=== PATIENT | female | born 2000 | race Caucasian/White ===

== ENCOUNTER 2023-09-30 15:49 | Emergency (ER) | payer MEDICAID, SELFPAY ==
[2023-09-30 16:19] VITALS: BP 153/87; PULSE 103; RESP 16; TEMP 36.6; O2SAT 96; BMI 50.5
--- NOTE | 2023-09-30 16:19 | ED_ITS ---
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 ? Patient reports for the last 3 days or so she has a lump ?near my clitoris. ? She states the area is painful Earlier today it ?popped and was bleeding. ? Denies any fevers or chills No other complaints or concerns at this time Related Data Previous Rx's Medication Instructions Recorded cephalexin 500 mg capsule 500 mg PO QID #28 caps 09/30/23 Allergies Allergy/AdvReac Type Severity Reaction Status Date / Time No Known Allergies Allergy Verified 09/30/23 16:19 Review of Systems Constitutional: Constitutional: Denies chills and Denies fever(s) Cardiovascular: Cardiovascular: Denies chest pain and Denies dyspnea Respiratory: Respiratory: Denies cough and Denies dyspnea Genitourinary: Genitourinary: Denies dysuria and Reports pelvic pain Comments: Reports lump near her clitoris Physical Exam Vital Signs: Vital Signs: Last Vital Signs Temp 97.8 F 09/30/23 16:19 Pulse 103 H 09/30/23 16:19 Resp 16 09/30/23 16:19 BP 153/87 H 09/30/23 16:19 Pulse Ox 96 09/30/23 16:19 O2 Del Method Room Air 09/30/23 16:19 BMI result Body Mass Index 50.5 Const: General: healthy appearing, comfortable, no acute distress, alert and awake Nutritional Appearance: well nourished Orientation/consciousness: patient oriented x3 HEENT: Head: Yes normocephalic and Yes atraumatic Eyes: Eyelids: Yes eyelids normal Conjunctivae: conjunctivae normal Sclerae: sclerae normal Corneas: corneas normal Pupils: Equal, round and reactive pupils present EOM: EOMs intact bilaterally Neck: Neck: Yes full ROM Resp: Effort & Inspection: normal respiratory effort, able to speak in complete sentences and not labored : Other: Patient has a small abscess that is open and draining just superior and right lateral side of the vaginal introitus. There is minimal surrounding erythema. This area is tender to palpation. Skin: General skin exam: elasticity normal Neuro: General: patient oriented x3 Cranial nerves: Yes Equal, round and reactive pupils present and Yes Bilaterally intact EOM present Cognition (Neuro): normal cognition Course Course Course Narrative: RME:?23 yo german speaking female here for evaluation of painful vaginal mass x3 days. Reports feeling a lump within the vaginal canal that she can now feel on the outside of her vagina. +bloody/mucousy vaginal discharge. denies other vaginal lesions, pruritis. never had symptoms before. LMP 1 mo ago. Not sexually active. Not on control. exam limited in triage. plan for UA, pelvic exam Full HPI, ROS and PE to be performed by the primary ED provider. Medical Decision Making Medical Decision Making [facility] Narrative: Patient appears to have a small abscess that is actively draining. I was able t o express about 60s of purulent drainage without any further incision. Patient was encouraged to use antibiotics for 1 week and continue with warm compresses and practice good hygiene to prevent a UTI. Will discharge her with cefuroxime Differential Diagnosis Differential Diagnoses: The differential diagnosis associated with the presen tation includes Cellulitis Abscess Sebaceous cyst Bartholin cyst [place]'s gland cyst Lab Data Labs: Lab Results 09/30/23 Range/Units 18:43 Urine Color Yellow Urine Appearance Clear Urine pH 5.5 (5.0-9.0) Ur Specific [place] 1.025 (1.005-1.025) Urine Protein Negative (Neg-Trace) mg/dL Urine Glucose (UA) Negative (Negative) mg/dL Urine Ketones Negative (Negative) mg/dL Urine Blood Negative (Negative) Urine Nitrite Negative (Negative) Ur Leukocyte Esterase Trace H (Negative) Urine RBC 0-2 (0-2) /HPF Urine WBC 6-10 H (0-5) /HPF Ur Squamous Epith Cells 6-10 (0-2) /HPF Urine Bacteria None Seen (None Seen) Hyaline Casts 0-2 (0-2) /LPF Urine Test NEGATIVE (NEGATIVE) Discharge Plan Discharge Clinical Impression: Abscess of groin, right Patient Disposition: Home, Self-Care Instructions: Abscess (ED) Additional Instructions: You had a small skin abscess. Use warm compresses every 4 hours for 10-15 minutes Take cephalexin 4 times daily for 7 days Try to keep the area very clean and dry to prevent UTI Follow-up with your primary doctor Prescriptions: New cephalexin 500 mg capsule 500 mg PO QID Qty: 28 0RF
[2023-09-30 18:51] LABS: Appearance Urine Clear; Color Urine Yellow; Glucose Urine UA Negative (Negative); Leukocyte Esterase Urine Trace (Negative); Nitrite Urine Negative (Negative); PH 5.5 (5.0-9.0); Specific Gravity - Urine 1.025 (1.005-1.025); UMIC TRIGGER UACC YES; Urine Blood Negative (Negative); Urine Ketones Negative (Negative); Urine Protein Negative (Neg-Trace)
[2023-09-30 18:52] LABS: UPreg QC Valid YES; Urine Pregnancy NEGATIVE (NEGATIVE)
[2023-09-30 18:53] LABS: Bacteria Urine None Seen (None Seen); Hyaline Casts Urine 0-2 /LPF (0-2); RBC Urine 0-2 /HPF (0-2); UACC Culture Trigger YES
--- OUTSIDE RECORDS SUMMARY | 2023-09-30 19:15 | XMS_ITS | Continuity of Care Document ---
Author Name Unknown Organization [facility] Address [address] [place] [address]- Care Team Providers Care Syrup Maker Cook Name Role Phone Not on Staff, PCP Primary Care Physician Unavail able Encounter [facility] Date(s): 11/13/21 - 01/07/[address] [address]- Attending Physician: Not on Staff, Attending MD Immunizations Given and Recorded Vaccine Date Status Refusal Reason influenza virus vaccine, inactivated 07/01/20 Medhat rded Human Papillomavirus Vaccine 07/01/20 Recorded tetanus/diphtheria/pertussis, acel(Tdap) 05/29/19 Recorded
--- OUTSIDE RECORDS SUMMARY | 2023-09-30 19:15 | XMS_ITS | Continuity of Care Document ---
Author Name Unknown Organization [facility] Address [address] [place] [address]- Care Team Providers Care Belly Packer Name Role Phone Not on Staff, PCP Primary Care Physician Unavail able Encounter [facility] Date(s): 12/08/21 - 01/07/[address] [address]- Attending Physician: Lloyd Brandon Admitting Physician: Lloyd Brandon Referring Physician: AdmtrLloyd Immunizations Given and Recorded Vaccine Date Status Refusal Reason influenza virus vaccine, inactivated 07/01/20 Medhat rded Human Papillomavirus Vaccine 07/01/20 Recorded tetanus/diphtheria/pertussis, acel(Tdap) 05/29/19 Recorded
--- OUTSIDE RECORDS SUMMARY | 2023-09-30 19:16 | XMS_ITS | Continuity of Care Document ---
Author Name Unknown Organization [facility] Address [address] [place] [address]- Care Team Providers Care Audience Coordinator Name Role Phone Not on Staff, PCP Primary Care Physician Unavail able Encounter [facility] Date(s): 10/03/21 - 11/29/[address] [address]- Attending Physician: Not on Staff, Attending MD Immunizations Given and Recorded Vaccine Date Status Refusal Reason influenza virus vaccine, inactivated 07/01/20 Medhat rded Human Papillomavirus Vaccine 07/01/20 Recorded tetanus/diphtheria/pertussis, acel(Tdap) 05/29/19 Recorded
--- OUTSIDE RECORDS SUMMARY | 2023-09-30 19:16 | XMS_ITS | Continuity of Care Document ---
Author Name Unknown Organization [facility] Address [address] [place] [address]- Care Team Providers Care Industrial Engineering Name Role Phone Not on Staff, PCP Primary Care Physician Unavail able Encounter [facility] Date(s): 12/03/22 - 12/04/[address] [address]- Discharge Disposition: A-D/C Walkout Attending Physician: Not on Staff, Attending MD Admitting Physician: Not on Staff, Admitting MD Referring Physician: Not on Staff, Referring MD Allergies, Adverse Reactions, Alerts No Known Allergies Immunizations Given and Recorded Vaccine Date Status Refusal Reason influenza virus vaccine, inactivated 07/01/20 Medhat rded Human Papillomavirus Vaccine 07/01/20 Recorded tetanus/diphtheria/pertussis, acel(Tdap) 05/29/19 Recorded Vital Signs Most recent to oldest [Reference Range]: 1 2 Oxygen Saturation [94-100 %] 100 % (12/03/22 9:54 PM) 98 % (12/03/22 9:50 PM) Pulse Rate [55-90 bpm] 113 bpm *H* (12/03/22 9:54 PM) 114 bpm *H* (12/03/22 9:50 PM) Blood Pressure [90-138/55-84 mm Hg] 126/ 93mm Hg (12/03/22 9:54 PM) Respiratory Rate [16-30 br/min] 18 br/mi n (12/03/22 9:54 PM) Temperature [96.8-100.4 DegF] 98.4 DegF (12/03/22 9:54 PM) Mode of Delivery (Oxygen) Room air (12/03/22 9:54 PM) Blood pressure sites Arm, left (12/03/22 9:54 PM) Temperature Route Oral (12/03/22 9:54 PM) Patient Care team information Care Team Personnel Name: Not on Staff, PCP Position: S Physician (General Medicine) Member Role: PCP
--- OUTSIDE RECORDS SUMMARY | 2023-09-30 19:16 | XMS_ITS | Continuity of Care Document ---
Author Name Unknown Organization [facility] Address [address] [place] [address]- Care Team Providers Care Rivet Heater Name Role Phone Not on Staff, PCP Primary Care Physician Unavail able Encounter [facility] Date(s): 07/24/22 - 07/24/[address] [address]- Discharge Disposition: A-D/C Walkout Attending Physician: Not on Staff, Attending MD Admitting Physician: Not on Staff, Admitting MD Referring Physician: Not on Staff, Referring MD Immunizations Given and Recorded Vaccine Date Status Refusal Reason influenza virus vaccine, inactivated 07/01/20 Medhat rded Human Papillomavirus Vaccine 07/01/20 Recorded tetanus/diphtheria/pertussis, acel(Tdap) 05/29/19 Recorded Vital Signs Most recent to oldest [Reference Range]: 1 Oxygen Saturation [94-100 %] 100 % (07/24/22 5:51 PM) Pulse Rate [55-90 bpm] 98 bpm *H* (07/24/22 5:51 PM) Blood Pressure [90-138/55-84 mm Hg] 127/ 61mm Hg (07/24/22 5:51 PM) Respiratory Rate [16-30 br/min] 18 br/mi n (07/24/22 5:51 PM) Temperature [96.8-100.4 DegF] 97.9 DegF (07/24/22 5:51 PM) Liters per Minute 0 L/min (07/24/22 5:51 PM) Mode of Delivery (Oxygen) Room air (07/24/22 5:51 PM) Blood pressure sites Arm, left (07/24/22 5:51 PM) Temperature Route Oral (07/24/22 5:51 PM) Patient Care team information Care Team Personnel Name: Not on Staff, PCP Position: [facility] Physician (General Medicine) Member Role: PCP
--- OUTSIDE RECORDS SUMMARY | 2023-09-30 19:16 | XMS_ITS | Continuity of Care Document ---
Author Name Unknown Organization [facility] Address [address] [place] [address]- Care Team Providers Care Sales Special Agent Name Role Phone Not on Staff, PCP Primary Care Physician Unavail able Encounter [facility] Date(s): 08/09/21 - 10/18/[address] [address]- Attending Physician: Not on Staff, Attending
== END 2023-09-30 19:17 | disposition home or self-care (01) ==
PROVIDERS: Physician Assistant Medical; Emergency Provider Emergency Medicine
DX: L02.214 Cutaneous abscess of groin (principal); Z79.899 Other long term (current) drug therapy
CPT/HCPCS: 81001; 81025; 87086; 99282; 99283